=== PATIENT | female | born 2000 | race Caucasian/White ===

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

== ENCOUNTER → 2021-05-30 13:27 | Outpatient (CLI) | payer OTHER, SELFPAY ==
--- NOTE | ~2021-05-30 | US_ITS ---
EXAMINATION: US thyroid DATE: 05/30/2021 13:43 INDICATION: Weight gain. Thyroid disorder screening. TECHNIQUE: Multiple ultrasound images of the thyroid were obtained. COMPARISON: None. FINDINGS: The right thyroid lobe measures 5.6 x 1.8 x 1.8 cm. The left thyroid lobe measures 5.6 x 1.4 x 1.8 c m. The thyroid demonstrates heterogeneous hypoechogenicity. No discrete nodule. Vascularity is farhan l. IMPRESSION: 1. Heterogeneous thyroid, likely chronic lymphocytic (Victorina) thyroiditis. Reviewed, dictated and finalized at location A.
== END ==
PROVIDERS: PCP Nurse Practitioner Adult Health; Visit Provider Nurse Practitioner Adult Health
DX: Z13.29 Encounter for screening for other suspected endocrine disorder (principal)
CPT/HCPCS: 76536